=== PATIENT | male | born 1965 | race Caucasian/White ===

== ENCOUNTER 2016-07-25 16:47 | Emergency (ER) | payer BC ==
[2016-07-25] MEDS ORDERED: ONDANSETRON 4 MG VIAL ONE (17:52)
[2016-07-25] MEDS ORDERED: DILAUDID 1 MG/ML AMP ONE ×2 (17:52→19:06)
[2016-07-25] MEDS ORDERED: KETOROLAC 30 MG/ML VIAL ONE (17:53)
[2016-07-25] MEDS ORDERED: SODIUM CHLORIDE 0.9% 1,000 ML ONE (17:53)
== END 2016-07-25 19:42 | disposition home or self-care (01) ==
LOC: ER 16:47
DX: N13.2 Hydronephrosis with renal and ureteral calculous obstruction (principal); R10.32 Left lower quadrant pain
CPT/HCPCS: 36415; 74176; 80053; 81001; 83690; 85025; 87088; 96361; 96374; 96375; 96376